=== PATIENT | male | born 1985 | race Caucasian/White ===

== ENCOUNTER 2023-04-10 19:12 | Emergency (ER) | payer BC, MEDICAID, SELFPAY ==
[2023-04-10] VITALS (10 sets, daily range): BP systolic 131–175; BP diastolic 62–99; PULSE 74–98; RESP 18–94; TEMP 36.7; O2SAT 92–98; BMI 34.4
--- NOTE | 2023-04-10 19:20 | ECG_ITS ---
APPROVED REPORT Exam: Resting ECG HR:100 bpm ECG Measurements Heart Rate 100 AXES WA 170 P 67 QRSd 100 QRS 93 QT 314 T -10 QTc 371 Conclusion SINUS TACHYCARDIA BORDERLINE RIGHT AXIS DEVIATION [QRS AXIS > 90] NONSPECIFIC ST & T-WAVE ABNORMALITY ABNORMAL ECG UNCONFIRMED REPORT Electronically signed by : Monroe Miller MD 04/12/2023 20:14:15
--- NOTE | 2023-04-10 19:20 | XR_ITS ---
PROCEDURE INFORMATION: Exam: XR Chest Exam date and time: 04/10/2023 7:21 PM Age: 37 years old Clinical indication: Dyspnea TECHNIQUE: Imaging protocol: Radiologic exam of the chest. Views: 1 view. COMPARISON: No relevant prior studies available. FINDINGS: Lungs: Unremarkable. No consolidation. Pleural spaces: Unremarkable. No pleural effusion. No pneumothorax. Heart/Mediastinum: Unremarkable. No cardiomegaly. Bones/joints: Unremarkable. IMPRESSION: No acute findings.
--- NOTE | 2023-04-10 19:20 | HMH.EDGENADL ---
Discharge Plan Disposition Patient Disposition: Home, Self-Care Chief Complaint: Chest Pain Prescriptions Prescriptions: No Action No Known Home Medications Clinical Impressions Clinical Impression: Chest pain Instructions Patient Instructions: DI for Atypical Chest Pain Discharge ED Provider: Edwardo (ED)Filipe Adult HPI <Srinivas Ching MD - Last Filed: 04/10/23 19:39> General Chief complaint: Chest Pain Stated complaint: Chest Pain Time Seen by Provider: 04/10/23 19:20 History of Present Illness HPI narrative: Patient is a 37-year-old male presenting with chest pain and palpitations. States that he was diagnosed with pneumonia earlier in the week had cough and fever and started on amoxicillin 1000 mg twice daily for 10 days and he was also prescribed prednisone. Though symptoms had been improving but today he was driving just prior to arrival and had several episodes of significant chest pain. There was some diaphoresis associated with this but that is since resolved. Episodes only lasted moments did not radiate were not positional not associated with any dyspnea. Other than the antibiotics and steroids that he is currently been taking he does take anabolic steroids as well as testosterone to augment his performance with weight lifting and performance. He has no known history of coronary disease or any cardiopulmonary medical problems in the past. Related Data Home Medications Medication Instructions Recorded Confirmed No Known Home Medications 04/10/23 04/10/23 Allergies Allergy/AdvReac Type Severity Reaction Status Date / Time Sulfa (Sulfonamide Allergy Intermediate I-RASH Verified 04/10/23 19:37 Antibiotics) [SULFA (SULFONAMIDE ANTIBIOTICS)] codeine [CODEINE] Allergy Mild STOMACH Verified 04/10/23 19:37 PAIN <Filipe Brooke (LUZ ELENA)MD - Last Filed: 04/10/23 22:35> General Mode of Arrival: Ambulatory Source of Information: Patient and Spouse Limitations: No Limitations [facility] <Srinivas Ching MD - Last Filed: 04/10/23 19:39> [facility] Disclaimer: The information contained in this section may have been updated after the patient was seen, as this information can be updated by other users. Social History (Updated 04/10/23 @ 19:39 by Srinivas Ching MD) Smoking Status: Never smoker alcohol intake: never current occupational status: other Travel in the last 8 weeks: None <Srinivas Ching MD - Last Filed: 04/10/23 19:39> ROS Obtained: Yes All systems reviewed & no additional complaints except as documented Physical Exam <Srinivas Ching MD - Last Filed: 04/10/23 19:39> General General appearance: alert Chest Chest inspection: Present other (Significant muscular hypertrophy with stretch page and anterior shoulders bilaterally) Respiratory Respiratory exam: Present normal lung sounds bilaterally; Absent respiratory distress, wheezes or stridor Cardiovascular Cardiovascular exam: Present normal rhythm and tachycardia Abdominal Exam Abdominal exam: Present soft; Absent distention or tenderness Neurological Exam Neurological exam: Present alert and oriented X3 Medical Decision Making <Srinivas Ching MD - Last Filed: 04/10/23 19:39> Adam Inquiry Pt receiving controlled substance: No Vital Signs: 04/10/23 19:13 04/10/23 19:16 04/10/23 19:31 Temperature 98.1 F Temperature Source Oral Pulse Rate 90 97 H Pulse Rate [Right] 98 H Respiratory Rate 23 28 H 22 Blood Pressure 175/99 H 139/76 Blood Pressure [Right Arm] 139/76 Blood Pressure Mean [Right Arm] 97 Blood Pressure Source [Right Arm] Automatic Cuff 02 Sat by Pulse Oximetry 98 97 94 L Oxygen Delivery Method Room Air 04/10/23 19:53 04/10/23 20:00 04/10/23 20:30 Temperature Temperature Source Pulse Rate 90 91 H 75 Pulse Rate [Right] Respiratory Rate 24 18 Blood Pressure 137/75 150/87 H Blood Pressure [Right Arm] Blood Pressure Mean [Right
--- NOTE | 2023-04-10 19:25 | PC.NURSE ---
RAD at for CXR
[2023-04-10 19:32] LABS: Basophils % 0.3 % (0.1-2.0); Eosinophils # 0.2 K/mm3 (0.0-0.4); Eosinophils % 1.5 % (0.1-12.0); Hematocrit 52.3 % (42.0-52.0); Hemoglobin 17.1 g/dL (14.1-18.0); Lymphocytes # 3.4 K/mm3 (0.7-4.5); Lymphocytes % 23.4 % (10-50); Mean Corpuscular HGB Conc 32.7 g/dL (31.8-35.4); Mean Corpuscular Hemoglobin 27.8 pg (27.0-31.2); Mean Corpuscular Volume 84.9 fl (80-94); Mean Platelet Volume 7.2 fl (7.4-10.4); Monocytes # 1.2 K/mm3 (0.1-1.0); Monocytes % 7.8 % (1.7-9.3); Neutrophils # 9.8 K/mm3 (1.8-7.8); Platelet Count 476 K/mm3 (142-424); Red Blood Count 6.16 M/mm3 (4.60-6.20); Red Cell Distribution Width 14.3 % (11.5-17.5); White Blood Count 14.7 K/mm3 (4.8-10.8)
[2023-04-10 19:35] LABS: Alanine Aminotransferase 69 U/L (12-78); Albumin Level 4.2 g/dl (3.5-5.0); Albumin/Globulin Ratio 1.3 (1.1-1.8); Alkaline Phosphatase 47 U/L (38-126); Anion Gap 16.2 mEq/L (5-15); Aspartate Amino Transferase 64 U/L (17-59); Bilirubin,Total 0.4 mg/dl (0.2-1.3); Blood Urea Nitrogen 16 mg/dl (9-20); Calcium 8.3 mg/dl (8.4-10.2); Carbon Dioxide 29 mmol/L (22.0-30.0); Chloride 98 mmol/L (98-107); Estimated Glomerular Filt Rate 76 ml/min (>60); GFR (African American) 92 ML/MIN (>60); Globulin 3.3 g/dL (1.3-3.2); Glucose 128 mg/dl (74-100); Potassium 3.2 mmoL/L (3.5-5.1); Sodium 140 mmol/L (136-145); Total Protein,Serum 7.5 g/dl (6.3-8.2)
[2023-04-10 19:39] LABS: D-Dimer 0.76 ug/mL (0.0-0.5)
[2023-04-10 19:49] LABS: Troponin I 0.01 ng/ml (0.00-0.034)
[2023-04-10 20:07] LABS: Thyroid Stimulating Hormone 2.35 uIU/mL (0.465-4.68)
--- NOTE | 2023-04-10 21:05 | PC.NURSE ---
Rounded on pt. Pt/family made aware second troponin would be drawn at 2200. No other needs voiced a this time.
[2023-04-10 21:08] LABS: Microscopic, Urine URINE MICROSCOPIC (MICROSCOPIC)
[2023-04-10 21:10] LABS: Appearance,Urine CLOUDY (Clear); Bilirubin,Urine Negative (Negative); Blood, Urine Negative (Negative); Color,Urine YELLOW (Yellow); Glucose,Urine (UA) Negative (Negative); Ketones,Urine Negative (Negative); Leukocyte Esterase,Urine Negative (Negative); Nitrate,Urine Negative (Negative); Protein,Urine Negative (Negative); Specific Gravity, Urine 1.015 (1.005-1.030)
[2023-04-10 21:43] LABS: Amorphous Sediment,Urine 4+ /lpf; Bacteria,Urine Trace /lpf; Squamous Epithelial Cell,Urine Occasional #/hpf (0-5); WBC,Urine Occasional #/hpf (0-3)
--- NOTE | 2023-04-10 22:02 | PC.NURSE ---
Second trop drawn and sent to lab. No other needs voiced at this time.
[2023-04-10 22:29] LABS: Troponin I 0.02 ng/ml (0.00-0.034)
== END 2023-04-10 22:41 | disposition home or self-care (01) ==
PROVIDERS: Student in an Organized Health Care Education/Training Program; Emergency Provider Emergency Medicine
DX: R07.9 Chest pain, unspecified (principal); R00.2 Palpitations
CPT/HCPCS: 71045; 80053; 81001; 83735; 84443; 84484; 85025; 85378; 93005; 96360; 99285